=== PATIENT | female | born 2000 | race Hispanic/Latino ===

== ENCOUNTER 2020-11-02 10:49 | Day surgery (SDC) | payer BC ==
[2020-11-02] MEDS ORDERED: hydrALAZINE 20 MG/ML VIAL SLOW IVP PRN (12:43)
[2020-11-02 12:52] LABS: Amnisure Test No Membranes Rupture (No Rupture)
== END 2020-11-02 13:00 | disposition home or self-care (01) ==
LOC: CSHLD/OP 10:49
PROVIDERS: ATTEND Obstetrics & Gynecology
DX: O99.891 Other specified diseases and conditions complicating pregnancy (principal); N89.8 Other specified noninflammatory disorders of vagina; O26.892 Other specified pregnancy related conditions, second trimester; R10.2 Pelvic and perineal pain; Z3A.26 26 weeks gestation of pregnancy; Z88.0 Allergy status to penicillin
CPT/HCPCS: 84112; 99283